=== PATIENT | male | born 1965 | race Caucasian/White ===

== ENCOUNTER → 2017-03-23 | Outpatient (CLI) | payer OTHER ==
[2014-12-30 20:52] VITALS: BP 148/85
[~2017-03-23] MED LIST: CIPR500T94 PO; HYDR-971 PO; ONDA4TAB10 SL; TAMS0.4C97 PO
--- NOTE | 2017-03-23 11:37 | RAD ---
DATE: 03/23/2017 EXAM: DIGITAL DIAGNOSTIC BILATERAL, BREAST RIGHT HISTORY: Right retroareolar swelling and pain COMPARISON: None available This study was interpreted with the benefit of Computerized Aided Detection (CAD). The breast parenchyma shows scattered fibroglandular densities. Breast parenchyma level B. FINDINGS: There are small bilateral retroareolar densities, right greater than left. These densities are flame shaped suggesting mild gynecomastia. No discrete breast nodule is seen. A benign type calcification is present in the left. No suspicious microcalcifications are evident. Right breast ultrasound, 03/23/2017: The area of clinical concern in the retroareolar region was carefully scanned. There is a triangular-shaped hypoechoic process likely posterior to the nipple. The sonographic appearance is most compatible with gynecomastia. IMPRESSION: Asymmetric retroareolar densities most compatible with mild gynecomastia, right greater than left. Clinical surveillance is suggested. BI-RADS 3-probably benign findings. BI-RADS CATEGORY: 3 PROBABLY BENIGN FINDING(S)-SHORT INTERVAL FOLLOW-UP SUGGESTED RECOMMENDED FOLLOW-UP: 6M 6 MONTH FOLLOW-UP PQRS compliance statement: Patient information was entered into a reminder system with a target due date for the next mammogram. Mammography is a sensitive method for finding small breast cancers, but it does not detect them all and is not a substitute for careful clinical examination. A negative mammogram does not negate a clinically suspicious finding and should not result in delay in biopsying a clinically suspicious abnormality. "Our facility is accredited by the [employer] Mammography [employer]."
== END | disposition home or self-care (01) ==
LOC: MAMMO 09:47
PROVIDERS: ATTEND Internal Medicine
DX: N63 Unspecified lump in breast (principal)
CPT/HCPCS: 76641; G0204; 77066

== ENCOUNTER → 2017-10-19 | Outpatient (CLI) | payer OTHER ==
[2014-12-30 20:52] VITALS: BP 148/85
--- NOTE | 2017-10-19 10:23 | RAD ---
DATE: 10/19/2017 EXAM: DIGITAL DIAGNOSTIC BILATERAL HISTORY: Bilateral breast pain COMPARISON: 03/23/2017 This study was interpreted with the benefit of Computerized Aided Detection (CAD). The breast parenchyma shows scattered fibroglandular densities. Breast parenchyma level B. FINDINGS: There are retroareolar densities bilaterally which have progressed since the previous study. These densities are no longer asymmetric. The findings are most compatible with progressing gynecomastia. No separate breast densities are seen. No suspicious microcalcifications are evident. IMPRESSION: Increasing symmetric bilateral retroareolar densities in a pattern typical of bilateral gynecomastia. BI-RADS CATEGORY: 2 BENIGN FINDING(S) RECOMMENDED FOLLOW-UP: CLIN FOLLOW UP IMAGING CLINICALLY INDICATED PQRS compliance statement: Patient information was entered into a reminder system with a target due date for the next mammogram. Mammography is a sensitive method for finding small breast cancers, but it does not detect them all and is not a substitute for careful clinical examination. A negative mammogram does not negate a clinically suspicious finding and should not result in delay in biopsying a clinically suspicious abnormality. "Our facility is accredited by the [employer] Mammography [employer]."
== END | disposition home or self-care (01) ==
LOC: MAMMO 09:25
PROVIDERS: ATTEND Student in an Organized Health Care Education/Training Program
DX: N62 Hypertrophy of breast (principal); N64.4 Mastodynia
CPT/HCPCS: 77066